=== PATIENT | male | born 1940 | race Caucasian/White ===

== ENCOUNTER 2020-05-22 19:29 | Inpatient (IN) | payer MEDICARE ==
[~2020-05-22] VITALS: Ht 180.3 cm; Wt 85.9 kg
[2020-05-22] MEDS ORDERED: aspirin 81mg tab.chew PO ONE (19:35)
[2020-05-22 19:50] LABS: BASOPHILS % (AUTO) 0.7 % (0-1); EOSINOPHILS # (AUTO) 0.1 X10'3 (0-0.9); EOSINOPHILS % (AUTO) 3.1 % (0-6); HEMATOCRIT 39.5 % (42.0-52.0); HEMOGLOBIN 13.1 g/dl (14.0-17.9); LYMPHOCYTES # (AUTO) 0.9 X10'3 (1.1-4.8); LYMPHOCYTES % (AUTO) 22.7 % (21-51); MEAN CORPUSCULAR HGB CONC 33.1 g/dL (33.0-36.5); MEAN CORPUSCULAR VOLUME 90.7 FL (78-98); MEAN PLATELET VOLUME 8.5 FL (7.4-10.4); MONOCYTES # (AUTO) 0.4 X10'3 (0-0.9); MONOCYTES % (AUTO) 11.1 % (2-12); NEUTROPHILS # (AUTO) 2.4 X10'3 (1.8-7.7); NEUTROPHILS % (AUTO) 62.4 % (42-75); PLATELET COUNT 185 X10'3 (140-440); RED BLOOD COUNT 4.35 X10'6 (4.70-6.10); RED CELL DISTRIBUTION WIDTH 13.8 % (11.5-14.5); WHITE BLOOD COUNT 3.8 X10'3 (4.5-11.0)
[2020-05-22 19:58] LABS: PARTIAL THROMBOPLASTIN TIME 29 SECONDS (22-32)
[2020-05-22 20:00] LABS: ALANINE AMINOTRANSFERASE 15 U/L (12-78); ALBUMIN 3.4 G/DL (3.4-5.0); ALKALINE PHOSPHATASE 40 IU/L (46-116); ANION GAP 11 (8-16); ASPARTATE AMINO TRANSFERASE 15 U/L (10-37); BILIRUBIN,TOTAL 0.2 MG/DL (0.1-1.0); BLOOD UREA NITROGEN 18 MG/DL (7-18); BUN/CREATININE RATIO 19.4 (5.4-32.0); CHLORIDE 104 MMOL/L (99-107); CREATININE 0.93 MG/DL (0.60-1.10); GLUCOSE 205 MG/DL (70-104); POTASSIUM 3.6 MMOL/L (3.5-5.1); SODIUM 139 MMOL/L (135-145); TOTAL CARBON DIOXIDE 24.1 MMOL/L (24-32); TOTAL PROTEIN 6.9 G/DL (6.4-8.2); eGFR 78 ML/MIN
[2020-05-22] MEDS ORDERED: potassium Cl 20 mEq SR tablet PO PRN ×2 (21:30)
[2020-05-22] MEDS ORDERED: acetaminophen 325mg tablet PO PRN (21:30)
[2020-05-22] MEDS ORDERED: ondansetron/PF 4mg/2ml inj IV PRN (21:30)
[2020-05-22] MEDS ORDERED: mag hydrox/Alum hydrox/simeth 30ml oral suspension PO PRN (21:30)
[2020-05-22] MEDS ORDERED: magnesium hydroxide 30ml (MOM) UD suspension PO PRN (21:30)
[2020-05-22] MEDS ORDERED: potassium CL 10mEq/100ml bag 100 ML IV PRN ×2 (21:30)
[2020-05-22] MEDS ORDERED: SIMV80TA89 PO (21:53)
[2020-05-22] MEDS ORDERED: PRIM50TA27 PO (21:53)
[2020-05-22] MEDS ORDERED: CILO50TA PO (21:53)
[2020-05-22] MEDS ORDERED: CITA20TA61 PO (21:53)
[2020-05-22] MEDS ORDERED: METO-395 PO (21:53)
[2020-05-22] MEDS ORDERED: ISOS30TA10 PO (21:53)
[2020-05-22] MEDS ORDERED: SIMV40TA PO (21:53)
--- NOTE | 2020-05-22 23:05 | NUR ---
Received report from Dionne BENITEZ in the ER, i was given the opportunity to ask questions.
[2020-05-22 23:10] LABS: HEMOGLOBIN A1C 6.2 % (4.5-6.2)
[2020-05-22 23:20] VITALS: BP 133/61
--- NOTE | 2020-05-22 23:20 | NUR ---
Patient has arrived from the ER via gurney. He is alert and orientated. A physical assessment has been performed. MRSA sample has been taken. The Patients vitals are BP 133/61 02 97, RR 16, HR 80, Temp 98.1, pain 0/10. A two RN skin check has been don with no abnormal findings. The bed is in a locked lowered position and the patients call light is within reach. Will continue to monitor patient.
[2020-05-23] VITALS (12 sets, daily range): BP systolic 93–123; BP diastolic 48–78
[2020-05-23 03:02] LABS: BASOPHILS % (AUTO) 0.7 % (0-1); EOSINOPHILS # (AUTO) 0.2 X10'3 (0-0.9); EOSINOPHILS % (AUTO) 4.4 % (0-6); HEMATOCRIT 39.5 % (42.0-52.0); LYMPHOCYTES # (AUTO) 0.9 X10'3 (1.1-4.8); LYMPHOCYTES % (AUTO) 27.6 % (21-51); MEAN CORPUSCULAR HEMOGLOBIN 29.5 PG (27.0-31.0); MEAN CORPUSCULAR HGB CONC 32.8 g/dL (33.0-36.5); MEAN CORPUSCULAR VOLUME 89.9 FL (78-98); MEAN PLATELET VOLUME 8.7 FL (7.4-10.4); MONOCYTES # (AUTO) 0.4 X10'3 (0-0.9); MONOCYTES % (AUTO) 12.5 % (2-12); NEUTROPHILS # (AUTO) 1.9 X10'3 (1.8-7.7); NEUTROPHILS % (AUTO) 54.8 % (42-75); PLATELET COUNT 170 X10'3 (140-440); RED BLOOD COUNT 4.39 X10'6 (4.70-6.10); WHITE BLOOD COUNT 3.4 X10'3 (4.5-11.0)
[2020-05-23 03:14] LABS: ALANINE AMINOTRANSFERASE 17 U/L (12-78); ALBUMIN 3.2 G/DL (3.4-5.0); ALBUMIN/GLOBULIN RATIO 0.9 (1.1-1.5); ALKALINE PHOSPHATASE 34 IU/L (46-116); ANION GAP 7 (8-16); ASPARTATE AMINO TRANSFERASE 13 U/L (10-37); BILIRUBIN,TOTAL 0.2 MG/DL (0.1-1.0); BLOOD UREA NITROGEN 14 MG/DL (7-18); BUN/CREATININE RATIO 17.7 (5.4-32.0); CALCIUM 8.8 MG/DL (8.5-10.1); CHLORIDE 107 MMOL/L (99-107); CHOLESTEROL 104 MG/DL (0-200); CREATININE 0.79 MG/DL (0.60-1.10); GLUCOSE 94 MG/DL (70-104); HDL CHOLESTEROL 35 MG/DL (35-60); LDL CHOLESTEROL 60 MG/DL (50-100); POTASSIUM 3.6 MMOL/L (3.5-5.1); SODIUM 142 MMOL/L (135-145); TOTAL CARBON DIOXIDE 27.8 MMOL/L (24-32); TOTAL PROTEIN 6.6 G/DL (6.4-8.2); TRIGLYCERIDES 41 MG/DL (20-135); eGFR > 90 ML/MIN
--- NOTE | 2020-05-23 06:09 | NUR ---
Student documentation: I have reviewed and agree with all interventions, assessments performed and documented by Archana BENITEZ.
--- NOTE | 2020-05-23 06:09 | NUR ---
Problems reprioritized. Patient report given, questions answered & plan of care reviewed with Idalmis BENITEZ.
--- NOTE | 2020-05-23 06:20 | NUR ---
Patient in room PCU 3016. I have received report from EMMANUEL Goodman and had the opportunity to ask questions and assume patient care.
--- NOTE | 2020-05-23 06:37 | NUR ---
Problems reprioritized. Patient report given, questions answered & plan of care reviewed with Elizabeth BENITEZ.
[2020-05-23] MEDS: K and/or MAG REPLACEMENT MC SCH ×2 (08:00→20:00)
[2020-05-23] MEDS ORDERED: metoprolol succinate 25mg (24-HOUR) SR. Tablet PO SCH (08:00)
[2020-05-23] MEDS ORDERED: nitroGLYCERIN 0.4mg SUBLingual tab SL PRN (09:25)
[2020-05-23] MEDS ORDERED: aminophylline 250mg/10ml inj. IV PRN (09:25)
[2020-05-23] MEDS ORDERED: regadenoson 0.4mg/5ml syringe IV PRN (09:25)
[2020-05-23] MEDS ORDERED: metoprolol tartrate 1mg/ml inj IV PRN (09:25)
[2020-05-23] MEDS: heparin, porcine 5000 units/ml vial SQ SCH ×2 (11:31→20:50)
[2020-05-23] MEDS: metoprolol tartrate 12.5mg (1/2 tablet) PO SCH ×2 (11:31→20:50)
[2020-05-23] MEDS: citalopram 20mg tablet PO SCH (11:32)
--- NOTE | 2020-05-23 12:33 | NUR ---
DR. MALAVE PAGED: PAGER ID: [phone] MESSAGE: [phone]: WINSTON MALDONADO, PLEASE ADVISE, SEMI +. TY NURSE DAVID [phone]
[2020-05-23] MEDS ORDERED: primidone 50mg tablet PO SCH (21:00)
[2020-05-24 02:00] VITALS: BP 106/61
[2020-05-24 05:50] LABS: BASOPHILS % (AUTO) 0.6 % (0-1); CHLORIDE 106 MMOL/L (99-107); EOSINOPHILS # (AUTO) 0.2 X10'3 (0-0.9); EOSINOPHILS % (AUTO) 4.5 % (0-6); HEMATOCRIT 38.4 % (42.0-52.0); HEMOGLOBIN 12.8 g/dl (14.0-17.9); LYMPHOCYTES # (AUTO) 0.9 X10'3 (1.1-4.8); LYMPHOCYTES % (AUTO) 27.8 % (21-51); MEAN CORPUSCULAR HEMOGLOBIN 30.2 PG (27.0-31.0); MEAN CORPUSCULAR HGB CONC 33.5 g/dL (33.0-36.5); MEAN CORPUSCULAR VOLUME 90.1 FL (78-98); MONOCYTES # (AUTO) 0.4 X10'3 (0-0.9); MONOCYTES % (AUTO) 11.4 % (2-12); NEUTROPHILS # (AUTO) 1.9 X10'3 (1.8-7.7); NEUTROPHILS % (AUTO) 55.7 % (42-75); PLATELET COUNT 179 X10'3 (140-440); POTASSIUM 3.9 MMOL/L (3.5-5.1); RED BLOOD COUNT 4.25 X10'6 (4.70-6.10); RED CELL DISTRIBUTION WIDTH 13.9 % (11.5-14.5); SODIUM 140 MMOL/L (135-145); WHITE BLOOD COUNT 3.4 X10'3 (4.5-11.0)
[2020-05-24 06:30] VITALS: BP_SYST 112; BP_SYST 162; BP_DIAS 60; BP_DIAS 69
--- NOTE | 2020-05-24 06:30 | NUR ---
Patient in room PCU 3016. I have received report from Rell BENITEZ and had the opportunity to ask questions and assume patient care.
[2020-05-24 06:32] LABS: ALANINE AMINOTRANSFERASE 19 U/L (12-78); ALBUMIN 3.1 G/DL (3.4-5.0); ALBUMIN/GLOBULIN RATIO 0.9 (1.1-1.5); ALKALINE PHOSPHATASE 33 IU/L (46-116); ANION GAP 10 (8-16); ASPARTATE AMINO TRANSFERASE 14 U/L (10-37); BILIRUBIN,TOTAL 0.3 MG/DL (0.1-1.0); BLOOD UREA NITROGEN 17 MG/DL (7-18); BUN/CREATININE RATIO 18.1 (5.4-32.0); CALCIUM 8.4 MG/DL (8.5-10.1); CREATININE 0.94 MG/DL (0.60-1.10); GLUCOSE 93 MG/DL (70-104); TOTAL CARBON DIOXIDE 23.6 MMOL/L (24-32); TOTAL PROTEIN 6.4 G/DL (6.4-8.2); eGFR 77 ML/MIN
[2020-05-24] MEDS ORDERED: atorvastatin 20mg tablet PO SCH (08:00)
[2020-05-24] MEDS ORDERED: aspirin 81mg tablet.DR PO SCH (08:30)
[2020-05-24 09:08] VITALS: BP_SYST 112
[2020-05-24] MEDS: metoprolol tartrate 12.5mg (1/2 tablet) PO SCH (09:08)
[2020-05-24] MEDS: heparin, porcine 5000 units/ml vial SQ SCH (09:09)
[2020-05-24] MEDS: citalopram 20mg tablet PO SCH (09:09)
[2020-05-24] MEDS ORDERED: ASPI-1071 PO (11:37)
--- NOTE | 2020-05-24 13:32 | NUR ---
Discharge instructions given to patient, patient verbalized understanding of all instructions made. I also gave discharge instructions to the daughter over the phone, she will be the one to tile picker the patient today. Peripheral IV catheter removed, tip intact. Instructed patient to ensure he has all his belongings with him before leaving.
== END 2020-05-24 13:53 | disposition home or self-care (01) | DRG 303 ==
LOC: ER 19:32 → ED HOLD 21:30 → PCU 3S 22:40
PROVIDERS: ADMIT Internal Medicine; ATTEND Internal Medicine
PROC: 4A02XM4 Measurement of Cardiac Total Activity, External Approach (ICD-10-PCS; principal; 2020-05-23)
PROC: 3E073KZ Introduction of Other Diagnostic Substance into Coronary Artery, Percutaneous Approach (ICD-10-PCS; 2020-05-23)
DX: I25.110 Atherosclerotic heart disease of native coronary artery with unstable angina pectoris (principal); E11.9 Type 2 diabetes mellitus without complications; E78.00 Pure hypercholesterolemia, unspecified; I10 Essential (primary) hypertension; K21.9 Gastro-esophageal reflux disease without esophagitis; G89.29 Other chronic pain; M54.9 Dorsalgia, unspecified; I25.2 Old myocardial infarction; Z95.5 Presence of coronary angioplasty implant and graft; Z87.891 Personal history of nicotine dependence; Z88.0 Allergy status to penicillin
CPT/HCPCS: 36415; 71045; 78452; 80053; 80061; 83036; 83735; 83880; 84484; 85025; 85610; 85730; 87081; 93005; 93017; 93308; 96372; 99285; A9500; G0378; J1644; J2785

== ENCOUNTER 2021-01-22 13:09 | Emergency (ER) | payer MEDICARE ==
[~2021-01-22] VITALS: Ht 180.3 cm; Wt 87.7 kg
[~2021-01-22 13:09] MED LIST: ASPI-1071 PO; CILO50TA PO; CITA20TA61 PO; ISOS30TA10 PO; METO-395 PO; PRIM50TA27 PO; SIMV40TA PO; SIMV80TA89 PO
[2021-01-22 14:13] LABS: CLARITY,URINE CLEAR (Clear); COLOR,URINE YELLOW (Yellow); GLUCOSE, URINE NEGATIVE (Neg); KETONES,URINE NEGATIVE (Neg); LEUKOCYTE ESTERASE ,URINE NEGATIVE (Neg); NITRITES, URINE NEGATIVE (Neg); OCCULT BLOOD,URINE LARGE (Neg); PROTEIN,URINE TRACE mg/dl (Neg); UROBILINOGEN,URINE 0.2 E.U/dL (0.2-1.0)
[2021-01-22 14:16] LABS: UA COLLECTION TYPE CLN CATCH MIDSTREAM
[2021-01-22 14:17] LABS: BACTERIA,URINE NONE SEEN /HPF (Neg); MUCUS STRANDS FEW /LPF (Neg); RBC,URINE 50-100 /HPF (0-2); SQUAMOUS EPITHELIAL CELL,UR NONE SEEN /LPF (FEW); WBC,URINE 0-4 /HPF (0-4)
[2021-01-22 14:18] VITALS: BP 135/65
[2021-01-22] MEDS ORDERED: FLO0.4C PO (14:53)
[2021-01-22] MEDS ORDERED: HYDR-3965 PO (14:53)
== END 2021-01-22 15:10 | disposition home or self-care (01) ==
LOC: ER 13:09
DX: N23 Unspecified renal colic (principal); I25.10 Atherosclerotic heart disease of native coronary artery without angina pectoris; E78.00 Pure hypercholesterolemia, unspecified; I10 Essential (primary) hypertension; I25.2 Old myocardial infarction; E11.9 Type 2 diabetes mellitus without complications; M19.90 Unspecified osteoarthritis, unspecified site; G89.29 Other chronic pain; Z87.442 Personal history of urinary calculi; Z98.890 Other specified postprocedural states; Z88.0 Allergy status to penicillin; Z79.899 Other long term (current) drug therapy; Z79.82 Long term (current) use of aspirin; Z88.8 Allergy status to other drugs, medicaments and biological substances
CPT/HCPCS: 81001; 99283

== ENCOUNTER 2021-03-06 07:33 | Observation (INO) | payer MEDICARE ==
[~2021-03-06] VITALS: Ht 180.3 cm; Wt 87.7 kg
[2021-03-06 08:06] LABS: BASOPHILS % (AUTO) 0.8 % (0-1); EOSINOPHILS # (AUTO) 0.2 X10'3 (0-0.9); EOSINOPHILS % (AUTO) 5.2 % (0-6); HEMATOCRIT 42.1 % (42.0-52.0); HEMOGLOBIN 14.1 g/dl (14.0-17.9); LYMPHOCYTES # (AUTO) 1.4 X10'3 (1.1-4.8); LYMPHOCYTES % (AUTO) 33.6 % (21-51); MEAN CORPUSCULAR HEMOGLOBIN 29.4 PG (27.0-31.0); MEAN CORPUSCULAR HGB CONC 33.5 g/dL (33.0-36.5); MEAN CORPUSCULAR VOLUME 87.9 FL (78-98); MEAN PLATELET VOLUME 7.8 FL (7.4-10.4); MONOCYTES # (AUTO) 0.5 X10'3 (0-0.9); MONOCYTES % (AUTO) 12.1 % (2-12); NEUTROPHILS # (AUTO) 2.1 X10'3 (1.8-7.7); NEUTROPHILS % (AUTO) 48.3 % (42-75); PLATELET COUNT 203 X10'3 (140-440); RED BLOOD COUNT 4.79 X10'6 (4.70-6.10); RED CELL DISTRIBUTION WIDTH 13.7 % (11.5-14.5); WHITE BLOOD COUNT 4.3 X10'3 (4.5-11.0)
[2021-03-06 08:20] LABS: ALANINE AMINOTRANSFERASE 19 U/L (12-78); ALBUMIN 3.4 G/DL (3.4-5.0); ALKALINE PHOSPHATASE 40 IU/L (46-116); ANION GAP 10 (8-16); ASPARTATE AMINO TRANSFERASE 15 U/L (10-37); BILIRUBIN,TOTAL 0.3 MG/DL (0.1-1.0); BLOOD UREA NITROGEN 10 MG/DL (7-18); BUN/CREATININE RATIO 10.3 (5.4-32.0); CALCIUM 8.3 MG/DL (8.5-10.1); CHLORIDE 109 MMOL/L (99-107); CREATININE 0.97 MG/DL (0.60-1.10); GLUCOSE 80 MG/DL (70-104); SODIUM 142 MMOL/L (135-145); TOTAL CARBON DIOXIDE 23.3 MMOL/L (24-32); TOTAL PROTEIN 6.8 G/DL (6.4-8.2); eGFR 74 ML/MIN
[2021-03-06] MEDS ORDERED: magnesium hydroxide 30ml (MOM) UD suspension PO PRN (10:20)
[2021-03-06] MEDS ORDERED: mag hydrox/Alum hydrox/simeth 30ml oral suspension PO PRN (10:20)
[2021-03-06] MEDS ORDERED: morphine 2 MG/ML inj. syringe IV PRN ×2 (10:20)
[2021-03-06] MEDS ORDERED: ondansetron/PF 4mg/2ml inj IV PRN (10:20)
[2021-03-06] MEDS ORDERED: acetaminophen 325mg tablet PO PRN (10:20)
[2021-03-06] MEDS ORDERED: CILO100T PO (11:37)
[2021-03-06] MEDS ORDERED: PRIM50TA5 PO (11:37)
[2021-03-06] MEDS ORDERED: METO25TA6 PO (11:37)
[2021-03-06] MEDS ORDERED: NITR0.4T51 SL (11:38)
--- NOTE | 2021-03-06 11:41 | NUR ---
Patient in room ED 4. I have received report from EMMANUEL White and had the opportunity to ask questions and awaiting pts arrival from ED.
[2021-03-06 11:57] VITALS: BP 130/73
--- NOTE | 2021-03-06 11:57 | NUR ---
Pt arrived from ED, ambulated with standby assistance to bed. Alert and Oriented x4. BLL, SRx2, CL within reach, non skid socks on. MRSA collected, 2 RN skin check complete, First set of vitals done. T 97.3 oral, BP 130/73, HR 68, R 20, 02 100 RA, Pain 0/10. Sara (daughter) at bedside.
[2021-03-06] MEDS ORDERED: nitroGLYCERIN 0.4mg SUBLingual tab SL PRN (14:15)
[2021-03-06] MEDS: normal saline 1000ml 1,000 ML IV SCH ×3 (14:59→21:11)
[2021-03-06 18:00] VITALS: BP 111/54
--- NOTE | 2021-03-06 18:42 | NUR ---
Problems reprioritized. Patient report given, questions answered & plan of care reviewed with EMMANUEL Ospina. Pt laying in bed resting comfortably.
[2021-03-06] MEDS: cilostazol 50mg tablet PO SCH (20:18)
[2021-03-06] MEDS: docusate sod 100mg capsule PO SCH (20:18)
[2021-03-06] MEDS: primidone 50mg tablet PO SCH (20:18)
[2021-03-06] MEDS: metoprolol tartrate 12.5mg (1/2 tablet) PO SCH (20:18)
[2021-03-06] MEDS: heparin, porcine 5000 units/ml vial SQ SCH (20:19)
[2021-03-06] MEDS ORDERED: atorvastatin 20mg tablet PO SCH (21:00)
[2021-03-06 22:00] VITALS: BP 140/72
[2021-03-07 02:21] VITALS: BP 115/67
[2021-03-07 06:00] VITALS: BP 122/64
--- NOTE | 2021-03-07 06:20 | NUR ---
received report from gayatri hilliard
[2021-03-07 06:48] LABS: BASOPHILS % (AUTO) 0.6 % (0-1); EOSINOPHILS # (AUTO) 0.1 X10'3 (0-0.9); EOSINOPHILS % (AUTO) 4.1 % (0-6); HEMATOCRIT 39.3 % (42.0-52.0); LYMPHOCYTES # (AUTO) 0.8 X10'3 (1.1-4.8); LYMPHOCYTES % (AUTO) 23.3 % (21-51); MEAN CORPUSCULAR HEMOGLOBIN 29.2 PG (27.0-31.0); MEAN CORPUSCULAR VOLUME 88.4 FL (78-98); MEAN PLATELET VOLUME 8.2 FL (7.4-10.4); MONOCYTES # (AUTO) 0.4 X10'3 (0-0.9); MONOCYTES % (AUTO) 11.4 % (2-12); NEUTROPHILS # (AUTO) 2.1 X10'3 (1.8-7.7); NEUTROPHILS % (AUTO) 60.6 % (42-75); PLATELET COUNT 174 X10'3 (140-440); RED BLOOD COUNT 4.44 X10'6 (4.70-6.10); RED CELL DISTRIBUTION WIDTH 13.7 % (11.5-14.5); WHITE BLOOD COUNT 3.4 X10'3 (4.5-11.0)
[2021-03-07 06:51] LABS: ALBUMIN 3.1 G/DL (3.4-5.0); ANION GAP 6 (8-16); BLOOD UREA NITROGEN 10 MG/DL (7-18); BUN/CREATININE RATIO 11.9 (5.4-32.0); CALCIUM 8.2 MG/DL (8.5-10.1); CHLORIDE 110 MMOL/L (99-107); CREATININE 0.84 MG/DL (0.60-1.10); GLUCOSE 114 MG/DL (70-104); POTASSIUM 4.8 MMOL/L (3.5-5.1); SODIUM 143 MMOL/L (135-145); TOTAL CARBON DIOXIDE 27.4 MMOL/L (24-32); eGFR 88 ML/MIN
[2021-03-07] MEDS: normal saline 1000ml 1,000 ML IV SCH (07:04)
[2021-03-07] MEDS: cilostazol 50mg tablet PO SCH (07:05)
[2021-03-07] MEDS: primidone 50mg tablet PO SCH (07:06)
[2021-03-07] MEDS: docusate sod 100mg capsule PO SCH (07:06)
[2021-03-07] MEDS: metoprolol tartrate 12.5mg (1/2 tablet) PO SCH (07:10)
[2021-03-07] MEDS: heparin, porcine 5000 units/ml vial SQ SCH (07:11)
--- NOTE | 2021-03-07 07:15 | NUR ---
large vol bag of fluid not scanning into meditech, checked bag prior to admin
[2021-03-07 07:17] VITALS: BP 117/56
[2021-03-07] MEDS ORDERED: citalopram 20mg tablet PO SCH (08:00)
--- NOTE | 2021-03-07 10:23 | NUR ---
PT D/C WITH INSTRUCTIONS, UNDERSTANDING OF INSTRUCTIONS AND W/ALL BELONGINGS IN WHEELCHAIR ACCOMPANIED BY SON AND NURSING STAFF TO PRIVATE VEHICLE TO GO HOME AND F/U W/PCP AND GAS PLUMBING INSPECTOR
== END 2021-03-07 10:10 | disposition home or self-care (01) ==
LOC: ER 07:33 → ED HOLD 10:21 → PCU 3S 11:59
PROVIDERS: ADMIT Family Medicine; ATTEND Family Medicine
DX: R07.89 Other chest pain (principal); I25.10 Atherosclerotic heart disease of native coronary artery without angina pectoris; E78.5 Hyperlipidemia, unspecified; I10 Essential (primary) hypertension; E11.9 Type 2 diabetes mellitus without complications; E78.00 Pure hypercholesterolemia, unspecified; I25.2 Old myocardial infarction; Z87.891 Personal history of nicotine dependence; Z95.5 Presence of coronary angioplasty implant and graft; Z79.899 Other long term (current) drug therapy; Z88.0 Allergy status to penicillin; Z91.018 Allergy to other foods
CPT/HCPCS: 36415; 71045; 80048; 80053; 83880; 84484; 85025; 85379; 87081; 93005; 96360; 96361; 96372; 99285; G0378; J1644; J7030

== ENCOUNTER 2023-06-03 17:21 | Emergency (ER) | payer MEDICARE ==
[~2023-06-03] VITALS: Ht 180.3 cm; Wt 91.3 kg
[~2023-06-03 17:21] MED LIST changes: -ASPI-1071 PO; +ASPI81TA52 PO; +CILO100T27 PO; -CILO50TA PO; -ISOS30TA10 PO; +LOP12.5T PO; +METF-436 PO; -METO-395 PO; +MULT-1074 PO; +NITR0.4T51 SL; +OMEP20CA16 PO; -PRIM50TA27 PO; +PRIM50TA5 PO; -SIMV40TA PO
[2023-06-03 17:27] VITALS: TEMP 97.4
[2023-06-03] MEDS ORDERED: ketorolac tromethamine 15mg/ml inj. IM ONE (17:40)
[2023-06-03 18:08] LABS: BILIRUBIN,URINE NEGATIVE (Neg); CLARITY,URINE CLEAR (Clear); COLOR,URINE YELLOW (Yellow); GLUCOSE, URINE NEGATIVE (Neg); KETONES,URINE 15 mg/dl (Neg); LEUKOCYTE ESTERASE ,URINE NEGATIVE (Neg); NITRITES, URINE NEGATIVE (Neg); OCCULT BLOOD,URINE LARGE (Neg); PH,URINE 5.5 (4.8-8.0); PROTEIN,URINE NEGATIVE (Neg); UROBILINOGEN,URINE 0.2 E.U/dL (0.2-1.0)
[2023-06-03 18:10] LABS: UA COLLECTION TYPE CLN CATCH MIDSTREAM
[2023-06-03 18:11] LABS: BACTERIA,URINE NONE SEEN /HPF (Neg); CAL OXALATE CRYSTALS 2+ /HPF (NEGATIVE); MUCUS STRANDS FEW /LPF (Neg); SQUAMOUS EPITHELIAL CELL,UR FEW /LPF (FEW); WBC,URINE 0-4 /HPF (0-4)
[2023-06-03 18:16] LABS: BASOPHILS % (AUTO) 0.8 % (0-1); EOSINOPHILS # (AUTO) 0.2 X10'3 (0-0.9); EOSINOPHILS % (AUTO) 3.6 % (0-6); HEMATOCRIT 39.4 % (42.0-52.0); LYMPHOCYTES % (AUTO) 20.8 % (21-51); MEAN CORPUSCULAR HEMOGLOBIN 28.9 PG (27.0-31.0); MEAN CORPUSCULAR HGB CONC 33.1 g/dL (33.0-36.5); MEAN CORPUSCULAR VOLUME 87.2 FL (78-98); MEAN PLATELET VOLUME 7.6 FL (7.4-10.4); MONOCYTES # (AUTO) 0.4 X10'3 (0-0.9); MONOCYTES % (AUTO) 9.1 % (2-12); NEUTROPHILS # (AUTO) 3.1 X10'3 (1.8-7.7); NEUTROPHILS % (AUTO) 65.7 % (42-75); PLATELET COUNT 225 X10'3 (140-440); RED BLOOD COUNT 4.52 X10'6 (4.70-6.10); RED CELL DISTRIBUTION WIDTH 14.5 % (11.5-14.5); WHITE BLOOD COUNT 4.7 X10'3 (4.5-11.0)
[2023-06-03 18:36] LABS: ALANINE AMINOTRANSFERASE 18 U/L (12-78); ALBUMIN 3.5 G/DL (3.4-5.0); ALKALINE PHOSPHATASE 34 IU/L (46-116); ANION GAP 7 (8-16); ASPARTATE AMINO TRANSFERASE 15 U/L (10-37); BILIRUBIN,TOTAL 0.3 MG/DL (0.1-1.0); BLOOD UREA NITROGEN 16 MG/DL (7-18); BUN/CREATININE RATIO 16.2 (10.0-20.0); CALCIUM 9.5 MG/DL (8.5-10.1); CHLORIDE 104 MMOL/L (99-107); CREATININE 0.99 MG/DL (0.60-1.10); GLUCOSE 108 MG/DL (70-104); POTASSIUM 4.1 MMOL/L (3.5-5.1); SODIUM 139 MMOL/L (135-145); TOTAL CARBON DIOXIDE 28.1 MMOL/L (24-32); eCRCL 60 ML/MIN; eGFR 72 ML/MIN
[2023-06-03 18:50] VITALS: BP 122/68; PULSE 94; RESP 18; O2SAT 98
--- NOTE | 2023-06-03 19:36 | NUR ---
I have reviewed & agree with the assessment completed by SMITH Solorio.
== END 2023-06-03 21:15 | disposition home or self-care (01) ==
LOC: ER 17:22
DX: N20.0 Calculus of kidney (principal); I25.10 Atherosclerotic heart disease of native coronary artery without angina pectoris; E78.00 Pure hypercholesterolemia, unspecified; I10 Essential (primary) hypertension; I25.2 Old myocardial infarction; E11.9 Type 2 diabetes mellitus without complications; M19.90 Unspecified osteoarthritis, unspecified site; G89.29 Other chronic pain; Z88.0 Allergy status to penicillin; Z91.018 Allergy to other foods; Z79.82 Long term (current) use of aspirin; Z79.899 Other long term (current) drug therapy
CPT/HCPCS: 36415; 74176; 80053; 81001; 85025; 99284

== ENCOUNTER 2024-05-01 10:14 | Emergency (ER) | payer MEDICARE ==
[~2024-05-01] VITALS: Ht 180.3 cm; Wt 81.5 kg
[2024-05-01 10:44] LABS: BASOPHILS % (AUTO) 0.6 % (0-1); EOSINOPHILS # (AUTO) 0.1 X10'3 (0-0.9); EOSINOPHILS % (AUTO) 3.3 % (0-6); HEMATOCRIT 41.8 % (42.0-52.0); HEMOGLOBIN 13.6 g/dl (14.0-17.9); LYMPHOCYTES % (AUTO) 22.4 % (21-51); MEAN CORPUSCULAR HEMOGLOBIN 28.4 PG (27.0-31.0); MEAN CORPUSCULAR HGB CONC 32.5 g/dL (33.0-36.5); MEAN CORPUSCULAR VOLUME 87.6 FL (78-98); MEAN PLATELET VOLUME 8.6 FL (7.4-10.4); MONOCYTES # (AUTO) 0.5 X10'3 (0-0.9); MONOCYTES % (AUTO) 11.6 % (2-12); NEUTROPHILS # (AUTO) 2.7 X10'3 (1.8-7.7); NEUTROPHILS % (AUTO) 62.1 % (42-75); PLATELET COUNT 181 X10'3 (140-440); RED BLOOD COUNT 4.78 X10'6 (4.70-6.10); RED CELL DISTRIBUTION WIDTH 15.4 % (11.5-14.5); WHITE BLOOD COUNT 4.4 X10'3 (4.5-11.0)
[2024-05-01 11:03] LABS: ALBUMIN 3.6 G/DL (3.4-5.0); ANION GAP 6 (8-16); BLOOD UREA NITROGEN 17 MG/DL (7-18); BUN/CREATININE RATIO 17.7 (10.0-20.0); CALCIUM 9.2 MG/DL (8.5-10.1); CHLORIDE 103 MMOL/L (99-107); CREATININE 0.96 MG/DL (0.60-1.10); GLUCOSE 88 MG/DL (70-104); MAGNESIUM 1.9 MG/DL (1.5-2.4); POTASSIUM 3.9 MMOL/L (3.5-5.1); PRO BRAIN NATRIURETIC PEPTIDE 56 PG/ML (0-450); SODIUM 139 MMOL/L (135-145); TOTAL CARBON DIOXIDE 30.2 MMOL/L (24-32); eCRCL 61 ML/MIN; eGFR 75 ML/MIN
[2024-05-01 12:52] VITALS: BP 111/57; PULSE 87; RESP 15; TEMP 97.5; O2SAT 95
== END 2024-05-01 12:56 | disposition home or self-care (01) ==
LOC: ER 10:15
DX: R07.89 Other chest pain (principal); I25.10 Atherosclerotic heart disease of native coronary artery without angina pectoris; E78.00 Pure hypercholesterolemia, unspecified; E11.9 Type 2 diabetes mellitus without complications; G89.29 Other chronic pain; I10 Essential (primary) hypertension; I25.2 Old myocardial infarction; M19.90 Unspecified osteoarthritis, unspecified site; Z88.0 Allergy status to penicillin; Z88.6 Allergy status to analgesic agent; Z79.899 Other long term (current) drug therapy; Z95.5 Presence of coronary angioplasty implant and graft
CPT/HCPCS: 36415; 71045; 80048; 83735; 83880; 84484; 85025; 93005; 99285

== ENCOUNTER 2024-10-29 08:14 | Outpatient (CLI) | payer MEDICARE | END 2024-10-29 23:59 | disposition home or self-care (01) | LOC: MRI02 08:14 | PROVIDERS: ATTEND Nurse Practitioner Family | DX: I67.82 Cerebral ischemia (principal); H91.93 Unspecified hearing loss, bilateral; R40.4 Transient alteration of awareness; R41.3 Other amnesia | CPT/HCPCS: 70551 ==

== ENCOUNTER 2024-12-22 19:19 | Emergency (ER) | payer MEDICARE ==
[~2024-12-22] VITALS: Ht 177.8 cm; Wt 95.5 kg
[2024-12-22 19:33] VITALS: BP 134/63; PULSE 63; RESP 16; TEMP 97.9; O2SAT 98
--- NOTE | 2024-12-22 19:40 | ELECTROCARDIOGRAPH REPORT ---
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
[2024-12-22 19:53] LABS: BASOPHILS % (AUTO) 1.1 % (0-1); EOSINOPHILS # (AUTO) 0.2 X10'3 (0-0.9); EOSINOPHILS % (AUTO) 4.2 % (0-6); HEMOGLOBIN 13.2 g/dl (14.0-17.9); LYMPHOCYTES # (AUTO) 0.9 X10'3 (1.1-4.8); LYMPHOCYTES % (AUTO) 25.1 % (21-51); MEAN CORPUSCULAR HEMOGLOBIN 28.9 PG (27.0-31.0); MEAN CORPUSCULAR HGB CONC 33.7 g/dL (33.0-36.5); MEAN CORPUSCULAR VOLUME 85.7 FL (78-98); MEAN PLATELET VOLUME 8.2 FL (7.4-10.4); MONOCYTES # (AUTO) 0.4 X10'3 (0-0.9); MONOCYTES % (AUTO) 11.2 % (2-12); NEUTROPHILS # (AUTO) 2.1 X10'3 (1.8-7.7); NEUTROPHILS % (AUTO) 58.4 % (42-75); PLATELET COUNT 208 X10'3 (140-440); RED BLOOD COUNT 4.56 X10'6 (4.70-6.10); WHITE BLOOD COUNT 3.6 X10'3 (4.5-11.0)
[2024-12-22 20:22] LABS: ALANINE AMINOTRANSFERASE 16 U/L (12-78); ALBUMIN 3.5 G/DL (3.4-5.0); ALKALINE PHOSPHATASE 38 IU/L (46-116); ANION GAP 6 (8-16); ASPARTATE AMINO TRANSFERASE 17 U/L (10-37); BILIRUBIN,TOTAL 0.2 MG/DL (0.1-1.0); BLOOD UREA NITROGEN 12 MG/DL (7-18); CALCIUM 8.8 MG/DL (8.5-10.1); CHLORIDE 104 MMOL/L (99-107); CREATININE 0.92 MG/DL (0.60-1.10); GLUCOSE 141 MG/DL (70-104); POTASSIUM 4.5 MMOL/L (3.5-5.1); SODIUM 139 MMOL/L (135-145); TOTAL CARBON DIOXIDE 29.3 MMOL/L (24-32); eCRCL 62 ML/MIN; eGFR 78 ML/MIN
[2024-12-22 20:25] LABS: PRO BRAIN NATRIURETIC PEPTIDE 189 PG/ML (0-450)
== END 2024-12-22 21:32 | disposition left against medical advice (07) ==
LOC: ER 19:19
DX: R07.9 Chest pain, unspecified (principal); Z88.0 Allergy status to penicillin; Z53.21 Procedure and treatment not carried out due to patient leaving prior to being seen by health care provider
CPT/HCPCS: 36415; 80053; 83880; 84484; 85025; 93005

== ENCOUNTER 2025-06-13 08:27 | Outpatient (CLI) | payer MEDICARE ==
--- NOTE | 2025-06-13 09:56 | RADIOLOGY REPORT ---
Procedure: CT CT SINUS Reason for study/Clinical History: JAW PAIN;ENVIROMENTAL ALLERGIES Comparison Study: None Exam Date: 06/13/2025 08:51 AM Technique: CT of the sinuses was performed without intravenous contrast. Findings: Nasal cavity: Clear. Frontal sinuses and frontal recesses: Clear. Maxillary sinuses: Clear. Ostiomeatal units: Clear. Ethmoid air cells: Clear. Sphenoid sinuses and sphenoethmoid recesses: Clear. Anatomic Variants: Cribriform plate is intact. Olfactory recess are symmetric with Keros II classification. Lamina papyracea is intact. Sphenoid sinus pneumatization pattern is sellar. Pneumatization of left optic strut. Carotid canals are adequately covered. Sphenoid sinus septation inserts along the posterior sinus wall. There is supraorbital pneumatization above the anterior ethmoidal notches. Visualized mastoid air cells and middle ear: Clear. Visualized brain, orbits and soft tissues: There is no significant abnormality noted. IMPRESSION: Essentially clear paranasal sinuses.
== END 2025-06-13 23:59 | disposition home or self-care (01) ==
LOC: RAD 08:27
PROVIDERS: ATTEND Nurse Practitioner Family
DX: R68.84 Jaw pain (principal); Z91.09 Other allergy status, other than to drugs and biological substances
CPT/HCPCS: 70486